=== PATIENT | female | born 1980 | race Caucasian/White ===

== ENCOUNTER → 2020-12-16 12:45 | Outpatient (CLI) | payer OTHER, SELFPAY ==
--- NOTE | ~2020-12-16 | MR_ITS ---
EXAMINATION: MR IAC wo/w con DATE: 12/16/2020 14:03 INDICATION: Left-sided sensorineural hearing loss. TECHNIQUE: Magnetic resonance imaging (MRI) of the brain, brainstem, and internal auditory canals was performed without and with 10 mL MultiHance intravenous contrast. Sequences included sagittal and ax ial T1-weighted FSE, axial diffusion-weighted FS EPI, axial T2*-weighted GRE, axial T2-weighted FLAIR Propeller, axial T2-weighted Propeller, small zheoj-qe-subk coronal FIESTA, small xbxqi-ye-ggbg hunter nal T1-weighted FSE, and small hqvfa-tu-vvrl axial T1-weighted SPGR. Postcontrast sequences included axial T1-weighted FSE, small frqqj-sb-vrzp coronal T1-weighted FSE, and small enlvc-zk-ltyu axial T1- weighted SPGR. Apparent diffusion coefficient (ADC) maps were created. COMPARISON: None. FINDINGS: There is no intracranial hemorrhage, acute infarction, or abnormal intracranial mass lesion . The ventricles are normal in size. The orbits are normal. The paranasal sinuses are clear. The mast oid air cells are normal. The internal auditory canals and inner and middle ears are normal. IMPRESSION: 1. Normal brain. Reviewed, dictated and finalized at location A. IMPRESSION: 1. Normal brain.
[2020-12-16 13:25] LABS: Estimated Glomerular Filt Rate > 60
== END ==
PROVIDERS: PCP Family Medicine; Visit Provider Nurse Practitioner Family
DX: H90.5 Unspecified sensorineural hearing loss (principal)
CPT/HCPCS: 70553; A9577

== ENCOUNTER 2022-12-16 11:55 | Emergency (ER) | payer OTHER, SELFPAY ==
--- NOTE | ~2022-12-16 | XR_ITS ---
EXAMINATION: XR chest 1V portable DATE: 12/16/2022 13:59 INDICATION: Cough. TECHNIQUE: A single frontal view of the chest was obtained. COMPARISON: Chest 2 views 08/01/2014, CT abdomen and pelvis 03/28/2013 FINDINGS: The chest demonstrates clear lungs without pneumonia, pleural effusion, or pneumothorax. Th e heart size is normal. IMPRESSION: 1. No acute cardiopulmonary disease. Reviewed, dictated and finalized at location A.
[2022-12-16 12:00] VITALS: BP 122/68; PULSE 87; RESP 16; TEMP 36.9; O2SAT 98
[2022-12-16 12:30] LABS: Basophils Absolute Auto 0.1 K/mm3 (0.0-0.1); Eosinophils Absolute Auto 0.1 K/mm3 (0-0.3); Eosinophils Percent Auto 1.4 % (0-4.4); Hematocrit 41.7 % (37.0-47.0); Immature Granulocyte Absolute 0.02 K/mm3 (0.00-0.031); Immature Granulocyte Percent A 0.2 % (0-0.5); Lymphocytes Absolute Auto 2.31 K/mm3 (0.9-3.2); Lymphocytes Percent Auto 27.9 % (18.3-44.2); Mean Corpuscular HGB Conc 33.6 g/dl (32-36); Mean Corpuscular Volume 101.2 fl (80-100); Mean Platelet Volume 9.2 fl (7.4-10.4); Monocytes Absolute Auto 0.5 K/mm3 (0.1-0.6); Monocytes Percent Auto 5.8 % (2.6-8.5); Neutrophils Absolute Auto 5.3 K/mm3 (1.3-6.7); Neutrophils Percent Auto 63.7 % (45.5-73.1); Platelet Count Result 418 k/mm3 (150-375); Red Blood Count 4.12 M/mm3 (4.2-5.4); Red Cell Distribution Width 12.6 % (11.5-14.5); White Blood Count 8.3 K/mm3 (4.5-10.0)
[2022-12-16 12:39] LABS: Appearance Urine Cloudy (Clear); Bacteria Urine 1+ /hpf; Bilirubin Urine Negative (Negative); Blood Urine 2+ (Negative); Color Urine Dark Yellow (Yellow); Glucose Urine UA Negative (Negative); Ketones Urine Trace mg/dL (Negative); Leukocyte Esterase Ur Trace LEU/UL (Negative); Nitrate Urine Negative (Negative); Non Pathogenic Casts 0-2; Protein Urine 1+ mg/dL (Negative); Specific Grav Ur 1.024 (1.001-1.035); Squamous Epithelial Cell Urine Many /hpf (Few); WBC Urine 0-5 /hpf
[2022-12-16 12:41] LABS: Add Urine Microscopic? YES
[2022-12-16 12:47] LABS: Alanine Aminotransferase 17 U/L (6-35); Albumin Level 4.5 g/dL (3.5-5.1); Alkaline Phosphatase 95 U/L (38-126); Anion Gap 10 mmol/L (8-16); Aspartate Amino Transferase 20 U/L (14-36); Bilirubin,Total 0.6 mg/dL (0.2-1.3); Blood Urea Nitrogen 5 mg/dL (7-17); Calcium 9.6 mg/dL (8.4-10.2); Carbon Dioxide 28 mmol/L (22-30); Chloride 102 mmol/L (98-107); Estimated Glomerular Filt Rate > 60; Glucose 105 mg/dL (65-110); Lipase 84 U/L (23-300); Potassium 3.4 mmol/L (3.4-5.0); Sodium 140 mmol/L (137-145)
[2022-12-16 13:24] LABS: Influenza A QL RT-PCR Negative (Negative); Influenza B QL RT-PCR Negative (Negative); RSV RNA, RT-PCR Negative (Negative); SARS-CoV-2 RNA PCR Negative (Negative)
--- NOTE | 2022-12-16 13:36 | ED.GENADULT ---
HPI - General Adult General Chief complaint: Nausea/Vomiting/Diarrhea Stated complaint: N/V, dehydrated , cough Time Seen by Provider: 12/16/22 12:24 History of Present Illness HPI narrative: 42-year-old female presented the emergency department for evaluation of persistent cough that has been ongoing for the last few weeks. Patient states he also developed some nausea last night but she is unsure if this is related to her cough or not. Patient denies any current nausea or vomiting. Patient denies any associate abdominal pain and patient has no urinary symptoms. Related Data Allergies Allergy/AdvReac Type Severity Reaction Status Date / Time No Known Allergies Allergy Mild Verified 12/16/22 11:58 Review of Systems Review of Systems: All systems reviewed & are unremarkable except as noted in HPI and below Exam Narrative: APPEARANCE: Well appearing, no pain, no distress, well-nourished. HEAD: normocephalic, atraumatic. EYES: PERRLA/EOMI, conjunctivae clear. NOSE: Normal no drainage NECK: Supple. No adenopathy, no masses. RESPIRATORY: Airway patent, respirations nonlabored. Clear to auscultation bilaterally, no rales, rhonchi, wheezing. CARDIOVASCULAR: Regular rate and rhythm without murmurs rubs or gallops. ABDOMINAL: Soft, nontender, nondistended, normal bowel sounds MUSCULOSKELETAL: Moves all extremities. Strength/ROM intact, No edema, No calf tenderness. NEURO: Alert. Cranial nerves II through XII intact. Grossly intact SKIN: Warm, dry. Normal Color Course Course Emergency Course: 42-year-old female presented the ED for evaluation of persistent cough and intermittent nausea. Patient was afebrile with no leukocytosis and a stable hemoglobin. Patient has no significant abnormalities on her CMP. Patient did have some blood and leukoesterase in her urine but patient is currently menstruating and did feel it was a contaminated UA. Patient was updated on the plan for additional work-up and treatment for home. Vital Signs Vital signs: Vital Signs Temperature 98.4 F 12/16/22 12:00 Pulse Rate 87 12/16/22 12:00 Respiratory Rate 16 12/16/22 12:00 Blood Pressure 122/68 12/16/22 12:00 Pulse Oximetry 98 12/16/22 12:00 Temperature 98.4 F 12/16/22 12:00 Pulse Rate 91 12/16/22 14:58 Respiratory Rate 18 12/16/22 14:58 Blood Pressure 111/97 H 12/16/22 14:58 Pulse Oximetry 98 12/16/22 14:58 Medical Decision Making Vital Signs Vital Signs: Vital Signs Temperature 98.4 F 12/16/22 12:00 Pulse Rate 87 12/16/22 12:00 Respiratory Rate 16 12/16/22 12:00 Blood Pressure 122/68 12/16/22 12:00 Pulse Oximetry 98 12/16/22 12:00 Temperature 98.4 F 12/16/22 12:00 Pulse Rate 91 12/16/22 14:58 Respiratory Rate 18 12/16/22 14:58 Blood Pressure 111/97 H 12/16/22 14:58 Pulse Oximetry 98 12/16/22 14:58 Lab Data 12/16/22 12:18 12/16/22 12:18 Labs: Lab Results 12/16/22 12/16/22 Range/Units 12:18 12:43 WBC 8.3 (4.5-10.0) K/mm3 RBC 4.12 L (4.2-5.4) M/mm3 Hgb 14.0 (12.0-15.0) g/dL Hct 41.7 (37.0-47.0) % MCV 101.2 H (80-100) fl MCH 34.0 (26-34) pg MCHC 33.6 (32-36) g/dl RDW 12.6 (11.5-14.5) % Plt Count 418 H (150-375) k/mm3 MPV 9.2 (7.4-10.4) fl Immature Gran % (Auto) 0.2 (0-0.5) % Neut % (Auto) 63.7 (45.5-73.1) % Lymph % (Auto) 27.9 (18.3-44.2) % Carter % (Auto) 5.8 (2.6-8.5) % Eos % (Auto) 1.4 (0-4.4) % Baso % (Auto) 1.0 (0.2-1.2) % Lymph # (Auto) 2.31 (0.9-3.2) K/mm3 Carter # (Auto) 0.5 (0.1-0.6) K/mm3 Eos # (Auto) 0.1 (0-0.3) K/mm3 Baso # (Auto) 0.1 (0.0-0.1) K/mm3 Abs Immat Gran (auto) 0.02 (0.00-0.031) K/mm3 Absolute Neuts (auto) 5.3 (1.3-6.7) K/mm3 Absolute Nucleated RBC 0.0 (0.0-0.012) K/mm3 Nucleated RBC % 0.0 (0.0-0.2) % Sodium 140 (137-145) mmol/L Potassium 3.4 (3.4-5.0) mmol/L Chloride 102 (98-107) mmo
[2022-12-16 14:58] VITALS: BP 111/97; PULSE 91; RESP 18; O2SAT 98
== END 2022-12-16 14:59 | disposition home or self-care (01) ==
PROVIDERS: Emergency Provider Emergency Medicine; PCP Family Medicine
DX: R05.9 Cough, unspecified (principal); Z20.822 Contact with and (suspected) exposure to COVID-19
CPT/HCPCS: 36415; 71045; 80053; 81001; 81025; 83690; 85025; 87637; 99283

== ENCOUNTER 2023-03-26 08:07 | Outpatient (CLI) | payer OTHER, SELFPAY ==
--- NOTE | ~2023-03-26 | MM_ITS ---
EXAMINATION: MM screening kaity BI w paulette HISTORY: Screening TECHNIQUE: Craniocaudal and mediolateral oblique 3-D tomosynthesis images were obtained and synthetic 2-D images were generated. CAD analysis was submitted and interpreted. COMPARISON: No prior mammogram is available for comparison at this institution. BREAST PARENCHYMAL COMPOSITION: The breasts are heterogeneously dense, which may obscure small masses FINDINGS: There are scattered bilateral breast asymmetries. There are no suspicious calcifications. IMPRESSION: 1. Developing bilateral breast asymmetries. 2. Additional mammographic views and possible breast ultrasound are recommended. BI-RADS Category 0: Incomplete: Needs additional imaging evaluation. Reviewed, dictated and finalized at location A. IMPRESSION: 1. Developing bilateral breast asymmetries. 2. Additional mammographic views and possible breast ultrasound are recommended . BI-RADS Category 0: Incomplete: Needs additional imaging evaluation.
== END 2023-03-26 08:08 | disposition home or self-care (01) ==
PROVIDERS: PCP Nurse Practitioner Family; Visit Provider Nurse Practitioner Family
DX: Z12.31 Encounter for screening mammogram for malignant neoplasm of breast (principal); R92.8 Other abnormal and inconclusive findings on diagnostic imaging of breast
CPT/HCPCS: 77063; 77067

== ENCOUNTER 2023-04-18 11:14 | Outpatient (CLI) | payer OTHER, SELFPAY ==
--- NOTE | ~2023-04-18 | MMUS_ITS ---
EXAMINATION: MM diagnostic kaity BI w paulette, US breast BI complete HISTORY: Follow-up bilateral breast asymmetries TECHNIQUE: Additional 3-D tomosynthesis images of the breasts were performed and synthetic 2-D images were generated. CAD analysis was submitted and interpreted. High resolution bilateral complete breas t ultrasound was performed. COMPARISON: 03/26/2023 BREAST PARENCHYMAL COMPOSITION: The breasts are extremely dense, which lowers the sensitivity of mamm ography FINDINGS: MAMMOGRAPHIC FINDINGS: There are no suspicious masses, calcifications or architectural distortion in either breast to sugges t malignancy. ULTRASOUND: Complete bilateral US of all 4 quadrants of the breasts and retroareolar region was reviewed. At 11:0 0, 6 cm from the nipple in the right breast there is an 8 mm cyst. No suspicious masses are identifie d in either breast to suggest malignancy. IMPRESSION: 1. No evidence for malignancy in either breast. 2. Routine yearly screening mammogram and regular clinical breast examination are recommended. BI-RADS Category 2: Benign finding(s). Reviewed, dictated and finalized at location A. K TOP ROLLER IMPRESSION: 1. No evidence for malignancy in either breast. 2. Routine yearly screening mammogram and regular clinical breast examination a re recommended. BI-RADS Category 2: Benign finding(s).
== END 2023-04-18 11:15 | disposition home or self-care (01) ==
LOC: ANHIMG 11:16
PROVIDERS: PCP Nurse Practitioner Family; Visit Provider Nurse Practitioner Family
DX: R92.8 Other abnormal and inconclusive findings on diagnostic imaging of breast (principal)
CPT/HCPCS: 76641; 77062; 77066; G0279